=== PATIENT | female | born 2005 | race African-American/Black ===

== ENCOUNTER 2024-03-03 04:49 | Inpatient (IN) | payer OTHER ==
[~2024-03-03] VITALS: Ht 167.6 cm; Wt 105.7 kg
[2024-03-03] MEDS: AMPICILLIN 2GM+NS 100ML IV ONE (06:03)
[2024-03-03 06:10] LABS: APPEARANCE,URINE CLEAR (CLEAR); BILIRUBIN,URINE NEGATIVE (NEGATIVE); COLOR,URINE COLORLESS (YELLOW); GLUCOSE, URINE (UA) NEGATIVE (NEGATIVE); KETONES,URINE NEGATIVE (NEGATIVE); LEUKOCYTE ESTERASE ,URINE NEGATIVE Leu/uL (NEGATIVE); NITRATE,URINE NEGATIVE (NEGATIVE); OCCULT BLOOD,URINE NEGATIVE (NEGATIVE); PROTEIN,URINE NEGATIVE (NEGATIVE); UROBILINOGEN,URINE 0.2 mg/dL (0.2-1.0)
[2024-03-03 06:17] LABS: ADD UA MICROSCOPIC NO
[2024-03-03] MEDS ORDERED: OXYTOCIN-LR 30 UNITS/500ML 500 ML IV SCH (06:30)
[2024-03-03 06:34] LABS: HEMATOCRIT 35.6 % (36-48); MEAN CORPUSCULAR HEMOGLOBIN 30.4 pg (27.0-33.0); MEAN CORPUSCULAR VOLUME 89.4 fL (80-100); RED BLOOD CELL COUNT(AUTO) 3.98 MIL/uL (4.00-5.50); RED CELL DISTRIBUTION WIDTH 12.4 % (11.0-15.5); WHITE BLOOD COUNT (AUTO) 12.6 K/uL (4.8-10.8)
[2024-03-03] MEDS: LACTATED RINGERS 1000ML 1,000 ML IV PRN (06:58)
[2024-03-03] MEDS: OXYTOCIN-LR 30 UNITS/500ML 500 ML IV SCH ×2 (06:58→20:38)
[2024-03-03 07:01] LABS: HIV 1&2 ANTIBODY Non-Reactive (Negative)
[2024-03-03 07:02] LABS: HIV-1 p24 Antigen Non-Reactive (Negative)
[2024-03-03 07:32] LABS: AMPHET/METH SCREEN,URINE NEGATIVE (NEGATIVE); BARBITURATE SCREEN, URINE NEGATIVE (NEGATIVE); BENZODIAZEPINES SCREEN,URINE NEGATIVE (NEGATIVE); CANNABINOID SCREEN,URINE POSITIVE (NEGATIVE); COCAINE SCREEN,URINE NEGATIVE (NEGATIVE); OPIATE SCREEN,URINE NEGATIVE (NEGATIVE); PHENCYCLIDINE SCREEN,URINE NEGATIVE (NEGATIVE)
[2024-03-03] MEDS ORDERED: AMPICILLIN 1GM+NS 50ML IV SCH (10:00)
[2024-03-03] MEDS: PROMETHAZINE HCL 25 MG/ML 1ML AMPULE IM PRN (10:08)
[2024-03-03] MEDS: MEPERIDINE-PF 50 MG/ML SYG IVP PRN (10:08)
[2024-03-03] MEDS ORDERED: NALOXONE HCL 0.4 MG/1 ML ML IV PRN (15:00)
[2024-03-03] MEDS ORDERED: LACTATED RINGERS 500 ML 500 ML IV PRN (15:00)
[2024-03-03] MEDS ORDERED: EPHEDRINE SULFATE 50 MG/ML AMPULE IVP PRN (15:00)
[2024-03-03] MEDS ORDERED: FENTANYL CITRATE PF 50 MCG/1 ML 2ML VIAL ONE (15:12)
[2024-03-03] MEDS: ROPIVACAINE 0.2% 2MG/ML 100ML VIAL EP SCH (15:31)
[2024-03-03] MEDS ORDERED: LIDOCAINE HCL 1% 20 ML VIAL ONE (17:56)
[2024-03-03] MEDS ORDERED: METHYLERGONOVINE MALEATE 0.2 MG/1 ML ML ONE (17:56)
[2024-03-03] MEDS ORDERED: LANOLIN 30GM OINTMENT TP PRN (18:30)
[2024-03-03] MEDS ORDERED: ACETAMINOPHEN WITH CODEINE 1 TAB TAB PO PRN (18:30)
[2024-03-03] MEDS ORDERED: ACETAMINOPHEN 325 MG TAB PO PRN (18:30)
[2024-03-03] MEDS: WITCH HAZEL 1 PAD TP PRN (20:59)
[2024-03-03] MEDS: DOCUSATE SODIUM 100 MG CAP PO SCH (20:59)
[2024-03-03] MEDS: BENZOCAINE/LANOLIN/ALOE VERA 60 ML AEROSOL TP PRN (21:00)
[2024-03-04 00:24] VITALS: BP 121/66; PULSE 60; RESP 20
[2024-03-04 03:57] VITALS: BP 113/67; PULSE 63; RESP 20
[2024-03-04 06:56] LABS: HEMATOCRIT 31.8 % (36-48); MEAN CORPUSCULAR HEMOGLOBIN 30.1 pg (27.0-33.0); MEAN CORPUSCULAR HGB CONC 33.6 g/dL (32.0-36.0); MEAN CORPUSCULAR VOLUME 89.3 fL (80-100); RED BLOOD CELL COUNT(AUTO) 3.56 MIL/uL (4.00-5.50); RED CELL DISTRIBUTION WIDTH 12.7 % (11.0-15.5); WHITE BLOOD COUNT (AUTO) 14.6 K/uL (4.8-10.8)
[2024-03-04] MEDS: IBUPROFEN 600 MG TABLET PO PRN (07:30)
[2024-03-04 07:45] VITALS: BP 111/68; PULSE 65; RESP 18
[2024-03-04 12:00] VITALS: BP 111/65; PULSE 67; RESP 16
[2024-03-04 15:17] LABS: RAPID PLASMA REAGIN NONREACTIVE (NONREACTIVE)
[2024-03-04 16:00] VITALS: BP 111/68; PULSE 98; RESP 18
[2024-03-04] MEDS ORDERED: PREN-134 PO (18:27)
[2024-03-04 19:30] VITALS: BP 114/70; PULSE 64
== END 2024-03-04 20:45 | disposition home or self-care (01) | DRG 807 ==
LOC: EDH 04:49 → OBSVTOIN 04:50 → LDH 04:50 → WSH 20:30
PROVIDERS: ADMIT Obstetrics & Gynecology; ATTEND Obstetrics & Gynecology
PROC: 10E0XZZ Delivery of Products of Conception, External Approach (ICD-10-PCS; principal; 2024-03-03)
PROC: 0HQ9XZZ Repair Perineum Skin, External Approach (ICD-10-PCS; 2024-03-03)
PROC: 3E0R3BZ Introduction of Anesthetic Agent into Spinal Canal, Percutaneous Approach (ICD-10-PCS; 2024-03-03)
PROC: 00HU33Z Insertion of Infusion Device into Spinal Canal, Percutaneous Approach (ICD-10-PCS; 2024-03-03)
DX: O69.81X0 Labor and delivery complicated by cord around neck, without compression, not applicable or unspecified (principal); Z37.0 Single live birth; O70.0 First degree perineal laceration during delivery; Z3A.38 38 weeks gestation of pregnancy
CPT/HCPCS: 36415; 80305; 81003; 85027; 86592; 86701; 86850; 86900; 86901; 87340; 87390; A4314; G0378; J0290; J2175; J2210; J2550; J3010; J7120